=== PATIENT | male | born 1970 | race Caucasian/White ===

== ENCOUNTER 2018-11-26 17:32 | Emergency (ER) | payer BC ==
--- NOTE | 2018-11-26 17:51 | EDPHY ---
H & P Stated Complaint: Skiing accident Source: Patient Exam Limitations: No limitations - Personal History Current Tetanus/Diphtheria Vaccine: Unsure - Medical/Surgical History Hx Asthma: No Hx Chronic Respiratory Disease: No Hx Diabetes: No Hx Cardiac Disease: No Hx Renal Disease: No Hx Cirrhosis: No Hx Alcoholism: No Other PMH: Denies - Family History Significant Family History: No pertinent family hx - Social History Smoking Status: Never smoked Alcohol Use: Sober Drug Use: None Time Seen by Provider: 11/26/18 17:45 HPI/ROS: CHIEF COMPLAINT: Right wrist and hand pain HISTORY OF PRESENT ILLNESS: The patient is a 47-year-old man [place]. He has pain and swelling of his right wrist and hand. Also abrasion to his face and right leg. He is not concerned about the abrasions. He has been ambulatory. He denies head or neck pain. He denies loss of consciousness. Severity: Moderate Modifying factors: None REVIEW OF SYSTEMS: Constitutional: denies: chills, fever, recent illness, recent injury EENTM: denies: blurred vision, double vision, nose congestion Respiratory: denies: cough, shortness of breath Cardiac: denies: chest pain, irregular heart rate, lightheadedness, palpitations Gastrointestinal/Abdominal: denies: abdominal pain, diarrhea, nausea, vomiting, blood streaked stools Genitourinary: denies: dysuria, frequency, hematuria, pain Musculoskeletal: See HPI Skin: d see HPI Neurological: denies: headache, numbness, paresthesia, tingling, dizziness, weakness Hematologic/Lymphatic: denies: blood clots, easy bleeding, easy bruising Immunologic/allergic: denies: HIV/AIDS, transplant 10 systems reviewed and negative except as noted EXAM: GENERAL: Well-appearing, well-nourished and in no acute distress. HEAD: See below, Atraumatic, normocephalic. EYES: Pupils equal round and reactive to light, extraocular movements intact, sclera anicteric, conjunctiva are normal. ENT: Abrasion to right cheek and mandible area, no malocclusion. TMs normal, nares patent, oropharynx clear without exudates. Moist mucous membranes. NECK: Normal range of motion, supple without lymphadenopathy or JVD. LUNGS: Breath sounds clear to auscultation bilaterally and equal. No wheezes rales or rhonchi. HEART: Regular rate and rhythm without murmurs, rubs or gallops. ABDOMEN: Soft, nontender, normoactive bowel sounds. No guarding, no rebound. No masses appreciated. BACK: No CVA tenderness, no spinal tenderness, step-offs or deformities EXTREMITIES: Right hand swelling and tenderness to 5th metacarpal area. Dinner fork deformity to right wrist. Normal pulses and sensation distally. NEUROLOGICAL: Cranial nerves II through XII grossly intact. Normal speech, normal gait. 5/5 strength, normal movement in all extremities, normal sensation , normal reflexes PSYCH: Normal mood, normal affect. SKIN: Abrasions to right leg and face (Gallito Retana) Constitutional: Initial Vital Signs Temperature (C) 36.6 C 11/26/18 17:34 Heart Rate 61 11/26/18 17:34 Respiratory Rate 18 11/26/18 17:34 Blood Pressure 145/89 H 11/26/18 17:34 O2 Sat (%) 98 11/26/18 17:34 O2 Delivery Mode [Post Nasal Cannula Procedure 4th] O2 Delivery Mode [Post Non-Rebreather Mask Procedure 3rd] O2 Delivery Mode [Post Non-Rebreather Mask Procedure 2nd] O2 Delivery Mode [Post Non-Rebreather Mask Procedure 1st] O2 Delivery Mode [Procedural Non-Rebreather Mask 6th] O2 Delivery Mode [Procedural Non-Rebreather Mask 5th] O2 Delivery Mode [Procedural Non-Rebreather Mask 4th] O2 Delivery Mode [Procedural Non-Rebreather Mask 3rd] O2 Delivery Mode [Procedural Non-Rebreather Mask 2nd] O2 Delivery Mode [Procedural Non-Rebreather Mask 1st] O2 Delivery Mode [.Immediate Non-Rebreather Mask Pre-Procedure] O2 Delivery Mode Room Air O2 (L/minute) [Post Procedure 4 4th] O2 (L/minute) [Post Procedure 8 3rd] O2 (L/minute) [Post Procedure 10 2nd] O2 (L/minute) [Post Procedure 12 1st] O2 (L/minute) [Procedural 6th] 15 O2 (L/minute) [Procedural 5th] 15 O2 (L/minute) [Procedural 4th] 15 O2 (L/minute) [Procedural 3rd] 15 O2 (L/minute) [Procedural 2nd] 15 O2 (L/minute) [Procedural 1st] 12 O2 (L/minute) [.Immediate Pre- 12 Procedure] O2 (L/minute) 2 Allergies/Adverse Reactions: No Known Allergies Allergy (Unverified 11/26/18 17:36) Home Medications: Medication Instructions Recorded Cephalexin [Keflex] 500 mg PO TID #10 cap 11/26/18 Hydrocodone/APAP 5/325 [Rapidan 1 - 2 tab PO Q4H PRN #10 tab 11/26/18 5/325 (RX)] Hydrocodone/APAP 5/325 [Rapidan 1 - 2 tab PO Q4H PRN #10 tab 11/26/18 5/325] Medical Decision Making - Diagnostics Imaging: Discussed imaging studies w/ scalloper Radiologist Procedures: Procedure: Procedural sedation. Indication: Fracture reduction and wound irrigation. A pre-sedation evaluation was completed on the patient just prior to the procedure. Patient is an appropriate candidate for procedural sedation with a normal 3-3-2 rule assessment and a Mallampati airway score of class 1. The risks of the sedation were discussed including but not limited to dysrhythmia, need for airway intervention or general anesthesia, disability, ; and verbal consent obtained. A timeout was observed and patient's identity confirmed. The patient was sedated with 140 mg ketamine. The patient was monitored with continuous pulse oximetry, capnography, and monitoring analyst. There were no complications and no significant hypoxemia. I remained at the bedside for the sedation. The total time I spent in the procedural sedation was 20 min. Procedure: Splint placement. A sugar-tong and ulnar got plaster splint was applied. After application of the splint I returned and re-examined the patient. The splint was adequately immobilizing the joint and distal to the splint the patient's circulation and sensation was intact. Procedure: Splint placement. A foam metal splint was applied to the patient's middle finger. After application of the splint I returned and re-examined the patient. The splint was adequately immobilizing the joint and distal to the splint the patient's circulation and sensation was intact. Orthopedic reduction: The patient's right wrist was reduced with traction and direct pressure. His finger dislocation was also reduced during procedural sedation as well as the hand fracture. These were all tolerated well. The open finger laceration was scrubbed aggressively and bandaged with sterile bandages. (Gallito Retana) ED Course/Re-evaluation: 2139: At the request of Sandrita, this patient's RN, I wrote a prescription for Rapidan for this patient. Dr. Retana did not sign the Rapidan prescription and he has left the ED. I was not otherwise involved in this patient's care. (Tanisha Alicia) Patient has multiple fractures on x-ray plus the dislocation and an open fracture to his distal finger. Will treat with Ancef and reduce and paged Orthopedics. 7:20 p.m. discussed the case with Dr. Hines who will evaluate call back. 7:35 p.m. discussed the case with Dr. Castellanos. He has evaluated the x-rays. He recommends reduction here in the emergency department and splinting. Reduction of the dislocation and irrigation of the open fracture as well as and 7 at 3 day prescription for Keflex. He will follow up with the patient on Wednesday to planned surgery for the distal radius fracture as well as the metacarpal fracture. While patient was sedated his finger was irrigated aggressively. He will be given antibiotics take At home as well. Post reduction x-rays show improvement Tetanus updated (Gallito Retana) Differential Diagnosis: Partial list of the Differential diagnosis considered include but were not limited to; open fracture, dislocation, Colles fracture, hand injury , multiple abrasions and although unlikely based on the history and physical exam , I also considered , neck injury, head injury. I discussed these differential diagnoses and the plan with the patient as well as the usual and expected course. The patient understands that the diagnosis is provisional and that in medicine we are not always correct and that further workup is often warranted. Usual and customary warnings were given. All of the patient's questions were answered. The patient was instructed to return to the emergency department should the symptoms at all worsen or return, otherwise to followup with the physician as we discussed. (Gallito Retana) - Data Points Laboratory Results: Laboratory Results 11/26/18 19:45 11/26/18 19:45 Medications Given: Discontinued Medications Hydrocodone Bitart/Acetaminophen (Rapidan 5/325mg Prepack#6) 1 btl TAKEHOME EDNOW ONE Stop: 11/26/18 20:44 Last Admin: 11/26/18 21:11 Dose: 1 btl Diphtheria/Tetanus/Acell Pertussis (Boostrix) 0.5 ml IM .ONCE ONE Stop: 11/26/18 21:02 Last Admin: 11/26/18 21:10 Dose: 0.5 ml Hydromorphone HCl (Dilaudid) 1 mg IVP EDNOW ONE Stop: 11/26/18 19:40 Last Admin: 11/26/18 19:49 Dose: 1 mg Cefazolin Sodium/Dextrose (Ancef 1 Gm (Premix)) 50 mls @ 200 mls/hr IV EDNOW ONE PRN Reason: Protocol Stop: 11/26/18 19:52 Last Admin: 11/26/18 19:52 Dose: 50 mls Sodium Chloride (Ns) 1,000 mls @ 0 mls/hr IV ONCE ONE; Wide Open PRN Reason: Protocol Stop: 11/26/18 19:40 Last Admin: 11/26/18 19:49 Dose: 1,000 mls Ketamine HCl (Ketamine) 140 mg IV EDNOW ONE Stop: 11/26/18 20:25 Last Admin: 11/26/18 20:24 Dose: 140 mg Departure - Departure Disposition: Home, Routine, Self-Care Clinical Impression: Open fracture of distal phalanx of right hand Colles' fracture of right radius Qualifiers: Encounter type: initial encounter Fracture type: closed Qualified Code(s): S52.531A - Colles' fracture of right radius, initial encounter for closed fracture Dislocation of finger, right, closed Qualifiers: Encounter type: initial encounter Qualified Code(s): S63.259A - Unspecified dislocation of unspecified finger, initial encounter Fracture of metacarpal of right hand, closed Qualifiers: Encounter type: initial encounter Metacarpal bone: fifth Metacarpal location: shaft Fracture alignment: displaced Qualified Code(s): S62.326A - Displaced fracture of shaft of fifth metacarpal bone, right hand, initial encounter for closed fracture Condition: Good Instructions: Hydrocodone/Acetaminophen (By mouth), Finger Fracture (ED), Hand Fracture (ED), Wrist Fracture in Adults (ED), Finger Dislocation (ED) Additional Instructions: Elevate your cast for pain relief. Use sling for comfort. When showering, cover your cast as to not get it wet. Tylenol 1000mg or 800 mg ibuprofen for pain relieve every 8 hours. Rapidan for breakthrough pain, take medication with food. Come back to ED if R cast feels tight, fingers appear discolored, or increasing pain out of proportion to injury. Call the ortho office on Wednesday for an appointment. We have not arranged this for you. Referrals: Phyllis Lopez MD [Primary Care Provider] - As per Instructions Sabino Hines MD [Medical Doctor] - 2-3 days without fail (Follow-up on Wednesday for surgical planning) Prescriptions: Cephalexin [Keflex] 500 mg PO TID #10 cap Hydrocodone/APAP 5/325 [Rapidan 5/325 (RX)] 1 - 2 tab PO Q4H PRN #10 tab PRN Reason: Pain, Moderate Hydrocodone/APAP 5/325 [Rapidan 5/325] 1 - 2 tab PO Q4H PRN #10 tab PRN Reason: Pain, Moderate
[2018-11-26] MEDS ORDERED: HYDROmorphONE/DILAUDID 2 MG/ML INJ IVP ONE (19:39)
[2018-11-26] MEDS ORDERED: NS 1,000 ML IV ONE (19:39)
[2018-11-26 19:53] LABS: PLATELET COUNT 178 10^3/uL (150-400)
[2018-11-26] MEDS ORDERED: KETAMINE 200 MG/20 ML VIAL ONE (20:06)
[2018-11-26] MEDS ORDERED: PROPOFOL 200 MG/20 ML VIAL ONE (20:06)
[2018-11-26 20:15] LABS: INR 1.05 (0.83-1.16); PROTIME(PATIENT) 13.3 SEC (12.0-15.0)
[2018-11-26] MEDS ORDERED: KETAMINE 500 MG/10 ML VIAL IV ONE (20:24)
[2018-11-26] MEDS ORDERED: HYDROCOD/APAP 5/325 PREPACK#6 BTL TAKEHOME ONE (20:43)
[2018-11-26] MEDS ORDERED: TDAP ADULT 0.5 ML INJ (BOOSTRIX) IM ONE (21:01)
[2018-11-26 22:34] VITALS: BP 119/80
== END 2018-11-26 22:30 | disposition home or self-care (01) ==
LOC: EDBD 17:32
DX: S52.591A Other fractures of lower end of right radius, initial encounter for closed fracture (principal); S52.611A Displaced fracture of right ulna styloid process, initial encounter for closed fracture; S62.398A Other fracture of other metacarpal bone, initial encounter for closed fracture; S63.282A Dislocation of proximal interphalangeal joint of right middle finger, initial encounter; E86.9 Volume depletion, unspecified; V00.321A Fall from snow-skis, initial encounter; Y93.23 Activity, snow (alpine) (downhill) skiing, snowboarding, sledding, tobogganing and snow tubing; Y92.828 Other wilderness area as the place of occurrence of the external cause
CPT/HCPCS: 96365; J0690; J1170; J2704; L3925; L3984

== ENCOUNTER → 2018-12-14 | Outpatient (CLI) | payer BC | LOC: BMCIMAGING 08:36 | PROVIDERS: ATTEND Orthopaedic Surgery Hand Surgery | DX: S52.571D Other intraarticular fracture of lower end of right radius, subsequent encounter for closed fracture with routine healing (principal); S52.611D Displaced fracture of right ulna styloid process, subsequent encounter for closed fracture with routine healing ==

== ENCOUNTER → 2018-12-28 | Outpatient (CLI) | payer BC | LOC: BMCIMAGING 11:12 ==